=== PATIENT | female | born 1945 | race Caucasian/White ===

== ENCOUNTER → 2017-03-22 | Outpatient (CLI) | payer MEDICARE, BC | LOC: M RAD 08:54 | DX: R16.1 Splenomegaly, not elsewhere classified (principal); D69.6 Thrombocytopenia, unspecified | CPT/HCPCS: 76700 ==

== ENCOUNTER → 2017-03-23 | Outpatient (REF) | payer MEDICARE, BC | LOC: M LAB REF 13:14 | DX: Z00.00 Encounter for general adult medical examination without abnormal findings (principal); E11.8 Type 2 diabetes mellitus with unspecified complications; Z79.899 Other long term (current) drug therapy | CPT/HCPCS: 87086 ==

== ENCOUNTER → 2017-04-25 | Outpatient (CLI) | payer MEDICARE, BC ==
[2017-04-25 15:20] LABS: ALBUMIN 4.2 GM/DL (3.2-5.2); ALKALINE PHOSPHATASE 112 U/L (45-117); ALT/SGPT 81 U/L (12-78); ANION GAP 6 MEQ/L (8-16); AST/SGOT 42 U/L (7-37); BILIRUBIN,TOTAL 1.1 MG/DL (0.2-1.0); BLOOD UREA NITROGEN 7 MG/DL (7-18); CALCIUM LEVEL 8.6 MG/DL (8.8-10.2); CARBON DIOXIDE LEVEL 30 MEQ/L (21-32); CHLORIDE LEVEL 106 MEQ/L (98-107); CHOLESTEROL LEVEL 134 MG/DL (<200); CHOLESTEROL RISK RATIO 3.045 (<5); CREATININE FOR GFR 0.61 MG/DL (0.55-1.30); GLOMERULAR FILTRATION RATE > 60.0 (>39); GLUCOSE, FASTING 186 MG/DL (70-100); HDL CHOLESTEROL 44 MG/DL (>40); NON-HDL-C 90 MG/DL; POTASSIUM SERUM 4.3 MEQ/L (3.5-5.1); SODIUM LEVEL 142 MEQ/L (136-145); TOTAL PROTEIN 7.2 GM/DL (6.4-8.2); TRIGLYCERIDES LEVEL 160 MG/DL (<150)
[2017-04-25 15:32] LABS: MALB URINE SIEMENS 27.7 MG/L; MAU/CREAT RATIO 20.3 MCG/MG (0.0-30.0)
== END ==
LOC: M SFHCSACK 08:18
DX: E78.5 Hyperlipidemia, unspecified (principal); E11.8 Type 2 diabetes mellitus with unspecified complications
CPT/HCPCS: 80053

== ENCOUNTER → 2017-06-08 | Outpatient (REF) | payer MEDICARE, BC ==
[2017-06-08 20:00] LABS: ALBUMIN 4.1 GM/DL (3.2-5.2); ALBUMIN/GLOBULIN RATIO 1.37 (1.00-1.93); ALKALINE PHOSPHATASE 246 U/L (45-117); ALT/SGPT 57 U/L (12-78); ANION GAP 6 MEQ/L (8-16); AST/SGOT 28 U/L (7-37); BILIRUBIN,TOTAL 0.7 MG/DL (0.2-1.0); BLOOD UREA NITROGEN 11 MG/DL (7-18); CALCIUM LEVEL 8.5 MG/DL (8.8-10.2); CARBON DIOXIDE LEVEL 29 MEQ/L (21-32); CHLORIDE LEVEL 101 MEQ/L (98-107); CREATININE FOR GFR 0.85 MG/DL (0.55-1.30); FERRITIN 411 NG/ML (8-252); GLOMERULAR FILTRATION RATE > 60.0 (>39); IRON (FE) 101 UG/DL (50-170); PERCENT SATURATION 39.9 % (13.2-45.0); POTASSIUM SERUM 4.3 MEQ/L (3.5-5.1); SODIUM LEVEL 136 MEQ/L (136-145); TOTAL IRON BINDING CAPACITY 253 UG/DL (250-450); TOTAL PROTEIN 7.1 GM/DL (6.4-8.2)
[2017-06-08 20:10] LABS: GLUCOSE, FASTING 521 MG/DL (70-100)
[2017-06-08 20:39] LABS: BASO % 0.6 % (0.0-1.0); EOS # 0.1 10^3/uL (0.0-0.50); EOS % 1.4 % (0.0-3.0); HEMATOCRIT 43.5 % (36.0-47.0); HEMOGLOBIN 14.6 g/dl (12.0-15.5); IMMATURE GRANULOCYTE % 0.3 % (0-3.0); LYMPH # 0.9 10^3/uL (1.5-4.5); LYMPH % 23.8 % (24.0-44.0); MEAN CORPUSCULAR HEMOGLOBIN 31.5 pg (27.0-33.0); MEAN CORPUSCULAR HGB CONC 33.6 g/dl (32.0-36.5); MONO # 0.3 10^3/uL (0.0-0.8); MONO % 7.6 % (0.0-5.0); NEUTROPHILS # 2.4 10^3/uL (1.8-7.7); NEUTROPHILS % 66.3 % (36.0-66.0); RED BLOOD COUNT 4.63 10^6/uL (4.00-5.40); RED CELL DISTRIBUTION WIDTH 13.9 % (11.5-14.5); WHITE BLOOD COUNT 3.6 10^3/uL (4.0-10.0)
[2017-06-08 21:33] LABS: IMMATURE PLATELET FRACTION % 9.6 % (0.0-9.6); PLATELET COUNT, AUTOMATED 87 10^3/uL (150-450)
== END ==
LOC: M LABNEURO 11:52
DX: D50.0 Iron deficiency anemia secondary to blood loss (chronic) (principal)
CPT/HCPCS: 83550

== ENCOUNTER → 2017-06-24 | Outpatient (REF) | payer MEDICARE, BC ==
[2017-06-24 13:37] LABS: BASO % 0.5 % (0.0-1.0); EOS # 0.1 10^3/uL (0.0-0.50); EOS % 2.3 % (0.0-3.0); HEMATOCRIT 42.5 % (36.0-47.0); HEMOGLOBIN 14.6 g/dl (12.0-15.5); IMMATURE GRANULOCYTE % 0.2 % (0-3.0); LYMPH # 1.1 10^3/uL (1.5-4.5); LYMPH % 24.5 % (24.0-44.0); MEAN CORPUSCULAR HEMOGLOBIN 32.2 pg (27.0-33.0); MEAN CORPUSCULAR HGB CONC 34.4 g/dl (32.0-36.5); MEAN CORPUSCULAR VOLUME 93.8 fl (80.0-96.0); MONO # 0.4 10^3/uL (0.0-0.8); MONO % 8.8 % (0.0-5.0); NEUTROPHILS # 2.8 10^3/uL (1.8-7.7); NEUTROPHILS % 63.7 % (36.0-66.0); PLATELET COUNT, AUTOMATED 100 10^3/uL (150-450); RED BLOOD COUNT 4.53 10^6/uL (4.00-5.40); RED CELL DISTRIBUTION WIDTH 12.9 % (11.5-14.5); WHITE BLOOD COUNT 4.3 10^3/uL (4.0-10.0)
[2017-06-24 14:10] LABS: ERYTHROCYTE SEDIMENTATION RATE 13 mm/hr (0-30)
[2017-06-24 14:14] LABS: VITAMIN B12 LEVEL 1439 PG/ML
[2017-06-24 14:15] LABS: FOLATE > 24.0 NG/ML
[2017-06-24 14:28] LABS: ALBUMIN 3.9 GM/DL (3.2-5.2); ALBUMIN/GLOBULIN RATIO 1.22 (1.00-1.93); ALKALINE PHOSPHATASE 223 U/L (45-117); ALT/SGPT 31 U/L (12-78); ANION GAP 4 MEQ/L (8-16); AST/SGOT 23 U/L (7-37); BLOOD UREA NITROGEN 13 MG/DL (7-18); CALCIUM LEVEL 8.5 MG/DL (8.8-10.2); CARBON DIOXIDE LEVEL 29 MEQ/L (21-32); CHLORIDE LEVEL 99 MEQ/L (98-107); CREATININE FOR GFR 0.73 MG/DL (0.55-1.30); GLOMERULAR FILTRATION RATE > 60.0 (>39); GLUCOSE, FASTING 376 MG/DL (70-100); POTASSIUM SERUM 4.1 MEQ/L (3.5-5.1); RHEUMATOID FACTOR QUANT < 10.0 IU/ML (<15.0); SODIUM LEVEL 132 MEQ/L (136-145); TOTAL PROTEIN 7.1 GM/DL (6.4-8.2)
[2017-06-24 15:28] LABS: ESTIMATED AVERAGE GLUCOSE 252 MG/DL (60-110); HEMOGLOBIN A1c 10.4 %
[2017-06-27 11:31] LABS: ALBUMIN 4.26 GM/DL (3.29-5.55); ALPHA-1-GLOBULIN % 3.5 % (2.9-4.9); ALPHA-1-GLOBULINS 0.25 GM/DL (0.17-0.41); ALPHA-2-GLOBULINS 0.85 GM/DL (0.42-0.99); BETA-1-GLOBULINS 0.38 GM/DL (0.28-0.60); BETA-1-GLOBULINS % 5.3 % (4.7-7.2); BETA-2-GLOBULINS 0.38 GM/DL (0.19-0.55); BETA-2-GLOBULINS % 5.4 % (3.2-6.5); GAMMA GLOBULIN % 13.8 % (11.1-18.8); GAMMA GLOBULINS 0.98 GM/DL (0.65-1.58)
[2017-06-28 08:58] LABS: DRVV SCREEN 43.1 SEC
== END ==
LOC: M LABNEURO 11:05
DX: G62.9 Polyneuropathy, unspecified (principal); Z79.899 Other long term (current) drug therapy
CPT/HCPCS: 82525

== ENCOUNTER 2017-07-14 18:04 | Emergency (ER) | payer MEDICARE, BC ==
[2017-07-14 20:13] LABS: BASO % 0.5 % (0.0-1.0); EOS # 0.2 10^3/uL (0.0-0.50); HEMOGLOBIN 13.3 g/dl (12.0-15.5); IMMATURE GRANULOCYTE % 0.2 % (0-3.0); LYMPH # 1.2 10^3/uL (1.5-4.5); LYMPH % 30.1 % (24.0-44.0); MEAN CORPUSCULAR HGB CONC 33.3 g/dl (32.0-36.5); MEAN CORPUSCULAR VOLUME 96.2 fl (80.0-96.0); MONO # 0.4 10^3/uL (0.0-0.8); MONO % 10.1 % (0.0-5.0); NEUTROPHILS # 2.2 10^3/uL (1.8-7.7); NEUTROPHILS % 55.1 % (36.0-66.0); PLATELET COUNT, AUTOMATED 109 10^3/uL (150-450); RED BLOOD COUNT 4.16 10^6/uL (4.00-5.40); RED CELL DISTRIBUTION WIDTH 12.6 % (11.5-14.5); WHITE BLOOD COUNT 4.1 10^3/uL (4.0-10.0)
[2017-07-14 20:26] LABS: INR 1.13; PROTHROMBIN TIME 14.7 SECONDS (12.4-14.5)
[2017-07-14 20:27] LABS: PARTIAL THROMBOPLASTIN TIME 31.8 SECONDS (26.8-37.9)
[2017-07-14 20:32] LABS: ALBUMIN 3.5 GM/DL (3.2-5.2); ALBUMIN/GLOBULIN RATIO 0.97 (1.00-1.93); ALKALINE PHOSPHATASE 190 U/L (45-117); ALT/SGPT 72 U/L (12-78); ANION GAP 5 MEQ/L (8-16); AST/SGOT 78 U/L (7-37); BILIRUBIN,DIRECT 0.2 MG/DL (0.0-0.2); BILIRUBIN,TOTAL 0.5 MG/DL (0.2-1.0); BLOOD UREA NITROGEN 8 MG/DL (7-18); CALCIUM LEVEL 8.6 MG/DL (8.8-10.2); CARBON DIOXIDE LEVEL 31 MEQ/L (21-32); CHLORIDE LEVEL 106 MEQ/L (98-107); CPK CREATINE PHOSPHOKINASE 779 U/L (26-192); FREE T4 0.76 NG/DL (0.76-1.46); GLOMERULAR FILTRATION RATE > 60.0 (>39); GLUCOSE, FASTING 85 MG/DL (70-100); LIPASE 42 U/L (73-393); SODIUM LEVEL 142 MEQ/L (136-145); TOTAL PROTEIN 7.1 GM/DL (6.4-8.2); TROPONIN I < 0.02 NG/ML (< 0.10)
[2017-07-14 20:38] LABS: CK-MB VALUE MASS 5.6 NG/ML (<3.6); MB/CK RELATIVE INDEX 0.71 (< OR =4); NT-PRO BNP 202 PG/ML (<125)
[2017-07-14 21:22] LABS: KETONE, URINE AUTO RFX NEGATIVE (NEGATIVE); NITRITE, URINE AUTO RFX NEGATIVE (NEGATIVE); RBC, URINE AUTO RFX 4 /HPF (0-3); SPECIFIC GRAVITY UR AUTO RFX 1.008 (1.002-1.035); SQUAM EPITHELIAL CELL UR AURFX 0 /HPF (0-6)
[2017-07-14 21:23] LABS: LEUKOCYTE ESTERASE UR AUTO RFX 3+ (NEGATIVE); WBC, URINE AUTO RFX 20 /HPF (0-3)
[2017-07-14] MEDS: CIPROFLOXACIN 500 MG TAB PO (21:54)
== END 2017-07-14 22:06 | disposition home or self-care (01) ==
LOC: M ED 18:04
DX: N30.90 Cystitis, unspecified without hematuria (principal); R60.0 Localized edema; R53.1 Weakness; I87.2 Venous insufficiency (chronic) (peripheral); M16.0 Bilateral primary osteoarthritis of hip; M51.37 Other intervertebral disc degeneration, lumbosacral region; R06.02 Shortness of breath; K57.30 Diverticulosis of large intestine without perforation or abscess without bleeding; R00.1 Bradycardia, unspecified; Z91.81 History of falling; I10 Essential (primary) hypertension; E78.9 Disorder of lipoprotein metabolism, unspecified; D50.9 Iron deficiency anemia, unspecified; K74.60 Unspecified cirrhosis of liver; Z87.891 Personal history of nicotine dependence; Z88.2 Allergy status to sulfonamides
CPT/HCPCS: 72192

== ENCOUNTER 2017-07-24 16:36 | Emergency (ER) | payer MEDICARE, BC ==
[2017-07-24 17:14] LABS: BASO % 0.5 % (0.0-1.0); EOS # 0.2 10^3/uL (0.0-0.50); EOS % 3.9 % (0.0-3.0); HEMATOCRIT 39.3 % (36.0-47.0); HEMOGLOBIN 13.1 g/dl (12.0-15.5); IMMATURE GRANULOCYTE % 0.3 % (0-3.0); LYMPH # 0.9 10^3/uL (1.5-4.5); LYMPH % 23.2 % (24.0-44.0); MEAN CORPUSCULAR HGB CONC 33.3 g/dl (32.0-36.5); MEAN CORPUSCULAR VOLUME 95.9 fl (80.0-96.0); MONO # 0.3 10^3/uL (0.0-0.8); MONO % 8.1 % (0.0-5.0); NEUTROPHILS # 2.5 10^3/uL (1.8-7.7); RED CELL DISTRIBUTION WIDTH 12.6 % (11.5-14.5); WHITE BLOOD COUNT 3.8 10^3/uL (4.0-10.0)
[2017-07-24 17:17] LABS: PLATELET COUNT, AUTOMATED 88 10^3/uL (150-450)
[2017-07-24 17:18] LABS: PLATELET F 86
[2017-07-24] MEDS: MORPHINE 4 MG/ML 1ML VIAL/SYRINGE (J2270) IV (17:26)
[2017-07-24 17:37] LABS: ANION GAP 5 MEQ/L (8-16); BLOOD UREA NITROGEN 11 MG/DL (7-18); CALCIUM LEVEL 8.5 MG/DL (8.8-10.2); CARBON DIOXIDE LEVEL 30 MEQ/L (21-32); CHLORIDE LEVEL 105 MEQ/L (98-107); GLOMERULAR FILTRATION RATE > 60.0 (>39); GLUCOSE, FASTING 140 MG/DL (70-100); POTASSIUM SERUM 3.9 MEQ/L (3.5-5.1); SODIUM LEVEL 140 MEQ/L (136-145)
[2017-07-24 18:20] LABS: BEDSIDE GLUCOSE 121 MG/DL (83-110)
[2017-07-24 19:05] LABS: KETONE, URINE AUTO RFX NEGATIVE (NEGATIVE); NITRITE, URINE AUTO RFX NEGATIVE (NEGATIVE); RBC, URINE AUTO RFX 2 /HPF (0-3); SPECIFIC GRAVITY UR AUTO RFX 1.006 (1.002-1.035); SQUAM EPITHELIAL CELL UR AURFX 0 /HPF (0-6); WBC, URINE AUTO RFX 6 /HPF (0-3)
[2017-07-24 19:06] LABS: LEUKOCYTE ESTERASE UR AUTO RFX TRACE (NEGATIVE)
== END 2017-07-24 19:58 | disposition home or self-care (01) ==
LOC: M ED 16:36
DX: S32.030A Wedge compression fracture of third lumbar vertebra, initial encounter for closed fracture (principal); S32.040A Wedge compression fracture of fourth lumbar vertebra, initial encounter for closed fracture; X58.XXXA Exposure to other specified factors, initial encounter; Y92.89 Other specified places as the place of occurrence of the external cause; M51.9 Unspecified thoracic, thoracolumbar and lumbosacral intervertebral disc disorder; M47.819 Spondylosis without myelopathy or radiculopathy, site unspecified; E11.9 Type 2 diabetes mellitus without complications; F41.9 Anxiety disorder, unspecified; F32.9 Major depressive disorder, single episode, unspecified; M19.90 Unspecified osteoarthritis, unspecified site; E78.9 Disorder of lipoprotein metabolism, unspecified; Z88.2 Allergy status to sulfonamides; Z88.8 Allergy status to other drugs, medicaments and biological substances; Z79.899 Other long term (current) drug therapy; Z79.2 Long term (current) use of antibiotics; Z79.4 Long term (current) use of insulin
CPT/HCPCS: J2270

== ENCOUNTER → 2017-07-27 | Outpatient (CLI) | payer MEDICARE, BC | LOC: M PAIN 11:15 | DX: M54.16 Radiculopathy, lumbar region (principal); S32.040S Wedge compression fracture of fourth lumbar vertebra, sequela; I10 Essential (primary) hypertension; E11.9 Type 2 diabetes mellitus without complications; G47.30 Sleep apnea, unspecified; K74.60 Unspecified cirrhosis of liver; K21.9 Gastro-esophageal reflux disease without esophagitis; D51.9 Vitamin B12 deficiency anemia, unspecified; Z79.891 Long term (current) use of opiate analgesic; Z79.4 Long term (current) use of insulin; Z79.899 Other long term (current) drug therapy; Z88.2 Allergy status to sulfonamides; Z88.6 Allergy status to analgesic agent; Z87.891 Personal history of nicotine dependence | CPT/HCPCS: G0463 ==

== ENCOUNTER → 2017-08-02 | Outpatient (CLI) | payer MEDICARE, BC | LOC: M RAD 09:31 | DX: S32.040A Wedge compression fracture of fourth lumbar vertebra, initial encounter for closed fracture (principal); M15.9 Polyosteoarthritis, unspecified; X58.XXXA Exposure to other specified factors, initial encounter; Y92.9 Unspecified place or not applicable | CPT/HCPCS: 78306 ==

== ENCOUNTER → 2017-08-09 | Outpatient (CLI) | payer MEDICARE, BC ==
[~2017-08-09] MED LIST: BUPIVACAINE HCL 0.25% 10 ML VIAL As Ordered; ISOVUE-M 300 61% 15ML VIAL (Q9967) As Ordered; LIDOCAINE 1% SDV INJ 30 ML VIAL As Ordered; TRIAMCINOLONE ACETONIDE SUSP 40 MG/ML VIAL (J3301) As Ordered; diazePAM 5 MG TAB As Ordered; oxyCODONE 5MG TAB As Ordered
== END ==
LOC: M PAIN 08:45
DX: G89.29 Other chronic pain (principal); M47.816 Spondylosis without myelopathy or radiculopathy, lumbar region; M47.817 Spondylosis without myelopathy or radiculopathy, lumbosacral region; I10 Essential (primary) hypertension; K21.9 Gastro-esophageal reflux disease without esophagitis; E11.9 Type 2 diabetes mellitus without complications; G47.30 Sleep apnea, unspecified; K74.60 Unspecified cirrhosis of liver; Z79.4 Long term (current) use of insulin; Z79.899 Other long term (current) drug therapy; Z88.2 Allergy status to sulfonamides; Z88.6 Allergy status to analgesic agent; Z87.891 Personal history of nicotine dependence
CPT/HCPCS: J3301

== ENCOUNTER → 2017-08-25 | Outpatient (CLI) | payer MEDICARE, BC ==
[2017-08-25 13:32] LABS: BASO % 0.4 % (0.0-1.0); EOS # 0.2 10^3/uL (0.0-0.50); EOS % 2.2 % (0.0-3.0); HEMATOCRIT 45.6 % (36.0-47.0); HEMOGLOBIN 15.6 g/dl (12.0-15.5); IMMATURE GRANULOCYTE % 0.3 % (0-3.0); LYMPH # 1.8 10^3/uL (1.5-4.5); LYMPH % 25.8 % (24.0-44.0); MEAN CORPUSCULAR HEMOGLOBIN 31.6 pg (27.0-33.0); MEAN CORPUSCULAR HGB CONC 34.2 g/dl (32.0-36.5); MEAN CORPUSCULAR VOLUME 92.5 fl (80.0-96.0); MONO # 0.5 10^3/uL (0.0-0.8); MONO % 6.8 % (0.0-5.0); NEUTROPHILS # 4.4 10^3/uL (1.8-7.7); NEUTROPHILS % 64.5 % (36.0-66.0); PLATELET COUNT, AUTOMATED 103 10^3/uL (150-450); RED BLOOD COUNT 4.93 10^6/uL (4.00-5.40); RED CELL DISTRIBUTION WIDTH 12.6 % (11.5-14.5); WHITE BLOOD COUNT 6.9 10^3/uL (4.0-10.0)
[2017-08-25 13:57] LABS: ALBUMIN/GLOBULIN RATIO 1.21 (1.00-1.93); ALKALINE PHOSPHATASE 135 U/L (45-117); ALT/SGPT 65 U/L (12-78); ANION GAP 5 MEQ/L (8-16); AST/SGOT 26 U/L (7-37); BILIRUBIN,TOTAL 0.6 MG/DL (0.2-1.0); BLOOD UREA NITROGEN 17 MG/DL (7-18); CALCIUM LEVEL 8.9 MG/DL (8.8-10.2); CARBON DIOXIDE LEVEL 31 MEQ/L (21-32); CHLORIDE LEVEL 101 MEQ/L (98-107); CREATININE FOR GFR 0.67 MG/DL (0.55-1.30); GLOMERULAR FILTRATION RATE > 60.0 (>39); GLUCOSE, FASTING 153 MG/DL (70-100); POTASSIUM SERUM 4.5 MEQ/L (3.5-5.1); SODIUM LEVEL 137 MEQ/L (136-145); TOTAL PROTEIN 7.3 GM/DL (6.4-8.2)
[2017-08-25 14:09] LABS: APPEARANCE, URINE CLEAR (CLEAR); BACTERIA, URINE AUTO NEGATIVE (NEGATIVE); BILIRUBIN, URINE AUTO NEGATIVE (NEGATIVE); BLOOD, URINE BLOOD 1+ (NEGATIVE); COLOR, URINE YELLOW (YELLOW); GLUCOSE, URINE (UA) AUTO 3+ mg/dL (NEGATIVE); KETONE, URINE AUTO NEGATIVE (NEGATIVE); LEUKOCYTE ESTERASE, URINE AUTO 3+ (NEGATIVE); NITRITE, URINE AUTO NEGATIVE (NEGATIVE); PROTEIN, URINE AUTO NEGATIVE (NEGATIVE); RBC, URINE AUTO 15 /HPF (0-3); SQUAMOUS EPITHELIAL CELL UR AU 1 /HPF (0-6); UROBILINOGEN, URINE AUTO 0.2 mg/dL (0.0-2.0); WBC, URINE AUTO 27 /HPF (0-3)
== END ==
LOC: M LAB 12:28
DX: I10 Essential (primary) hypertension (principal)
CPT/HCPCS: 80053

== ENCOUNTER → 2017-10-04 | Outpatient (CLI) | payer MEDICARE, BC ==
[2017-10-04 12:27] LABS: BASO % 0.6 % (0.0-1.0); EOS # 0.1 10^3/uL (0.0-0.50); EOS % 2.5 % (0.0-3.0); HEMOGLOBIN 14.5 g/dl (12.0-15.5); IMMATURE GRANULOCYTE % 0.6 % (0-3.0); LYMPH # 1.5 10^3/uL (1.5-4.5); LYMPH % 30.9 % (24.0-44.0); MEAN CORPUSCULAR HEMOGLOBIN 31.5 pg (27.0-33.0); MEAN CORPUSCULAR VOLUME 95.4 fl (80.0-96.0); MONO # 0.4 10^3/uL (0.0-0.8); MONO % 7.6 % (0.0-5.0); NEUTROPHILS # 2.8 10^3/uL (1.8-7.7); NEUTROPHILS % 57.8 % (36.0-66.0); RED BLOOD COUNT 4.61 10^6/uL (4.00-5.40); RED CELL DISTRIBUTION WIDTH 13.5 % (11.5-14.5); WHITE BLOOD COUNT 4.9 10^3/uL (4.0-10.0)
[2017-10-04 12:42] LABS: PLATELET COUNT, AUTOMATED 93 10^3/uL (150-450)
[2017-10-04 12:43] LABS: IMMATURE PLATELET FRACTION % 6.5 % (0.0-9.6)
[2017-10-04 13:15] LABS: ALBUMIN 3.5 GM/DL (3.2-5.2); ALBUMIN/GLOBULIN RATIO 1.03 (1.00-1.93); ALKALINE PHOSPHATASE 104 U/L (45-117); ALT/SGPT 81 U/L (12-78); ANION GAP 5 MEQ/L (8-16); AST/SGOT 39 U/L (7-37); BILIRUBIN,TOTAL 0.5 MG/DL (0.2-1.0); BLOOD UREA NITROGEN 9 MG/DL (7-18); CALCIUM LEVEL 8.9 MG/DL (8.8-10.2); CARBON DIOXIDE LEVEL 32 MEQ/L (21-32); CHLORIDE LEVEL 101 MEQ/L (98-107); CREATININE FOR GFR 0.74 MG/DL (0.55-1.30); FERRITIN 336 NG/ML (8-252); GLOMERULAR FILTRATION RATE > 60.0 (>39); GLUCOSE, FASTING 274 MG/DL (70-100); IRON (FE) 117 UG/DL (50-170); PERCENT SATURATION 43.8 % (13.2-45.0); POTASSIUM SERUM 4.2 MEQ/L (3.5-5.1); SODIUM LEVEL 138 MEQ/L (136-145); TOTAL IRON BINDING CAPACITY 267 UG/DL (250-450); TOTAL PROTEIN 6.9 GM/DL (6.4-8.2)
== END ==
LOC: M LAB 11:55
DX: D50.8 Other iron deficiency anemias (principal)
CPT/HCPCS: 83550

== ENCOUNTER → 2017-10-06 | Outpatient (CLI) | payer MEDICARE, BC ==
[2017-10-06 12:21] LABS: BASO % 0.5 % (0.0-1.0); EOS # 0.2 10^3/uL (0.0-0.50); EOS % 2.5 % (0.0-3.0); HEMATOCRIT 47.5 % (36.0-47.0); HEMOGLOBIN 15.9 g/dl (12.0-15.5); IMMATURE GRANULOCYTE % 0.3 % (0-3.0); LYMPH # 1.5 10^3/uL (1.5-4.5); LYMPH % 25.4 % (24.0-44.0); MEAN CORPUSCULAR HEMOGLOBIN 31.5 pg (27.0-33.0); MEAN CORPUSCULAR HGB CONC 33.5 g/dl (32.0-36.5); MEAN CORPUSCULAR VOLUME 94.1 fl (80.0-96.0); MONO # 0.4 10^3/uL (0.0-0.8); NEUTROPHILS # 3.8 10^3/uL (1.8-7.7); NEUTROPHILS % 64.3 % (36.0-66.0); PLATELET COUNT, AUTOMATED 106 10^3/uL (150-450); RED BLOOD COUNT 5.05 10^6/uL (4.00-5.40); RED CELL DISTRIBUTION WIDTH 13.6 % (11.5-14.5)
[2017-10-06 12:47] LABS: ALBUMIN 3.9 GM/DL (3.2-5.2); ALBUMIN/GLOBULIN RATIO 1.11 (1.00-1.93); ALKALINE PHOSPHATASE 96 U/L (45-117); ALT/SGPT 80 U/L (12-78); ANION GAP 6 MEQ/L (8-16); AST/SGOT 36 U/L (7-37); BILIRUBIN,TOTAL 0.8 MG/DL (0.2-1.0); BLOOD UREA NITROGEN 9 MG/DL (7-18); CALCIUM LEVEL 9.2 MG/DL (8.8-10.2); CARBON DIOXIDE LEVEL 32 MEQ/L (21-32); CHLORIDE LEVEL 104 MEQ/L (98-107); CREATININE FOR GFR 0.69 MG/DL (0.55-1.30); ESTIMATED AVERAGE GLUCOSE 206 MG/DL (60-110); GLOMERULAR FILTRATION RATE > 60.0 (>39); GLUCOSE, FASTING 88 MG/DL (70-100); HEMOGLOBIN A1c 8.8 %; SODIUM LEVEL 142 MEQ/L (136-145); TOTAL PROTEIN 7.4 GM/DL (6.4-8.2)
== END ==
LOC: M LAB 11:30
DX: Z01.812 Encounter for preprocedural laboratory examination (principal)
CPT/HCPCS: 80053

== ENCOUNTER → 2017-10-06 | Outpatient (CLI) | payer MEDICARE, BC ==
[2017-10-06 12:45] LABS: ANION GAP 10 MEQ/L (8-16); BLOOD UREA NITROGEN 9 MG/DL (7-18); CALCIUM LEVEL 9.3 MG/DL (8.8-10.2); CARBON DIOXIDE LEVEL 29 MEQ/L (21-32); CHLORIDE LEVEL 104 MEQ/L (98-107); CREATININE FOR GFR 0.68 MG/DL (0.55-1.30); GLOMERULAR FILTRATION RATE > 60.0 (>39); GLUCOSE, FASTING 95 MG/DL (70-100); POTASSIUM SERUM 4.1 MEQ/L (3.5-5.1); SODIUM LEVEL 143 MEQ/L (136-145)
== END ==
LOC: M LAB 11:32
DX: R60.0 Localized edema (principal)

== ENCOUNTER → 2017-10-19 | Outpatient (CLI) | payer MEDICARE, BC | LOC: M PAIN 13:45 | DX: M47.816 Spondylosis without myelopathy or radiculopathy, lumbar region (principal); M47.817 Spondylosis without myelopathy or radiculopathy, lumbosacral region; E11.9 Type 2 diabetes mellitus without complications; I10 Essential (primary) hypertension; K21.9 Gastro-esophageal reflux disease without esophagitis; D51.9 Vitamin B12 deficiency anemia, unspecified; K74.60 Unspecified cirrhosis of liver; Z79.4 Long term (current) use of insulin; Z79.899 Other long term (current) drug therapy; Z88.2 Allergy status to sulfonamides; Z88.6 Allergy status to analgesic agent; Z87.891 Personal history of nicotine dependence | CPT/HCPCS: G0463 ==

== ENCOUNTER → 2017-12-02 | Outpatient (CLI) | payer MEDICARE, BC | LOC: M PAIN 11:30 | DX: M47.816 Spondylosis without myelopathy or radiculopathy, lumbar region (principal); M47.817 Spondylosis without myelopathy or radiculopathy, lumbosacral region; I10 Essential (primary) hypertension; K21.9 Gastro-esophageal reflux disease without esophagitis; E11.9 Type 2 diabetes mellitus without complications; G47.30 Sleep apnea, unspecified; K74.60 Unspecified cirrhosis of liver; Z79.4 Long term (current) use of insulin; Z79.891 Long term (current) use of opiate analgesic; Z79.899 Other long term (current) drug therapy; Z88.2 Allergy status to sulfonamides; Z88.6 Allergy status to analgesic agent; Z87.891 Personal history of nicotine dependence | CPT/HCPCS: G0463 ==

== ENCOUNTER → 2018-01-17 | Outpatient (CLI) | payer MEDICARE, BC ==
[2018-01-17 16:00] LABS: BASO % 0.5 % (0.0-1.0); EOS # 0.1 10^3/uL (0.0-0.50); EOS % 3.3 % (0.0-3.0); HEMATOCRIT 40.8 % (36.0-47.0); HEMOGLOBIN 13.5 g/dl (12.0-15.5); IMMATURE GRANULOCYTE % 0.5 % (0-3.0); LYMPH # 1.2 10^3/uL (1.5-4.5); LYMPH % 29.5 % (24.0-44.0); MEAN CORPUSCULAR HEMOGLOBIN 30.8 pg (27.0-33.0); MEAN CORPUSCULAR HGB CONC 33.1 g/dl (32.0-36.5); MEAN CORPUSCULAR VOLUME 92.9 fl (80.0-96.0); MONO # 0.3 10^3/uL (0.0-0.8); MONO % 8.3 % (0.0-5.0); NEUTROPHILS # 2.3 10^3/uL (1.8-7.7); NEUTROPHILS % 57.9 % (36.0-66.0); PLATELET COUNT, AUTOMATED 100 10^3/uL (150-450); RED BLOOD COUNT 4.39 10^6/uL (4.00-5.40); RED CELL DISTRIBUTION WIDTH 13.2 % (11.5-14.5)
[2018-01-17 16:24] LABS: ALBUMIN 3.5 GM/DL (3.2-5.2); ALBUMIN/GLOBULIN RATIO 0.95 (1.00-1.93); ALKALINE PHOSPHATASE 150 U/L (45-117); ALT/SGPT 30 U/L (12-78); ANION GAP 6 MEQ/L (8-16); AST/SGOT 27 U/L (7-37); BILIRUBIN,TOTAL 0.3 MG/DL (0.2-1.0); BLOOD UREA NITROGEN 7 MG/DL (7-18); CALCIUM LEVEL 8.2 MG/DL (8.8-10.2); CARBON DIOXIDE LEVEL 31 MEQ/L (21-32); CHLORIDE LEVEL 103 MEQ/L (98-107); CREATININE FOR GFR 0.79 MG/DL (0.55-1.30); FERRITIN 161 NG/ML (8-252); GLOMERULAR FILTRATION RATE > 60.0 (>39); GLUCOSE, FASTING 266 MG/DL (70-100); IRON (FE) 53 UG/DL (50-170); PERCENT SATURATION 21.5 % (13.2-45.0); POTASSIUM SERUM 3.9 MEQ/L (3.5-5.1); SODIUM LEVEL 140 MEQ/L (136-145); TOTAL IRON BINDING CAPACITY 246 UG/DL (250-450); TOTAL PROTEIN 7.2 GM/DL (6.4-8.2)
== END ==
LOC: M LAB 15:39
DX: E61.1 Iron deficiency (principal)
CPT/HCPCS: 83550

== ENCOUNTER → 2018-01-18 | Outpatient (CLI) | payer MEDICARE, BC ==
[2018-01-18 11:24] LABS: ALBUMIN 3.9 GM/DL (3.2-5.2); ALBUMIN/GLOBULIN RATIO 1.15 (1.00-1.93); ALKALINE PHOSPHATASE 132 U/L (45-117); ALT/SGPT 30 U/L (12-78); ANION GAP 4 MEQ/L (8-16); AST/SGOT 30 U/L (7-37); BILIRUBIN,TOTAL 0.4 MG/DL (0.2-1.0); BLOOD UREA NITROGEN 7 MG/DL (7-18); CARBON DIOXIDE LEVEL 33 MEQ/L (21-32); CHLORIDE LEVEL 102 MEQ/L (98-107); CHOLESTEROL LEVEL 189 MG/DL (<200); CHOLESTEROL RISK RATIO 4.725 (<5); CREATININE FOR GFR 0.74 MG/DL (0.55-1.30); GLOMERULAR FILTRATION RATE > 60.0 (>39); GLUCOSE, FASTING 133 MG/DL (70-100); HDL CHOLESTEROL 40 MG/DL (>40); LDL CHOLESTEROL 114 MG/DL (<100); NON-HDL-C 149 MG/DL; POTASSIUM SERUM 3.7 MEQ/L (3.5-5.1); SODIUM LEVEL 139 MEQ/L (136-145); TOTAL PROTEIN 7.3 GM/DL (6.4-8.2); TRIGLYCERIDES LEVEL 175 MG/DL (<150)
[2018-01-18 11:33] LABS: CREATININE, URINE 30.6 MG/DL; MALB URINE SIEMENS 5.3 MG/L; MAU/CREAT RATIO 17.3 MCG/MG (0.0-30.0)
== END ==
LOC: M LAB 10:16
DX: E11.8 Type 2 diabetes mellitus with unspecified complications (principal)
CPT/HCPCS: 80053

== ENCOUNTER → 2018-05-10 | Outpatient (CLI) | payer MEDICARE, BC ==
[~2018-05-10] MED LIST changes: -BUPIVACAINE HCL 0.25% 10 ML VIAL As Ordered; +CIPR-249 PO; +CYCL10TA; +ESCI20TA; +FURO20TA2; +GABA-1171; +GLIM2TAB; -ISOVUE-M 300 61% 15ML VIAL (Q9967) As Ordered; -LIDOCAINE 1% SDV INJ 30 ML VIAL As Ordered; +MELA3CAP2 PO; +METO50TA7; +NOVO1INJ4; +OXYC-517; +PANT40TA3; +ROLLMIS2 XX; +SPIR-10; +TOUJ1.2I; -TRIAMCINOLONE ACETONIDE SUSP 40 MG/ML VIAL (J3301) As Ordered; +[UNRECOGNIZED DRUG - CODE] XX; -diazePAM 5 MG TAB As Ordered; -oxyCODONE 5MG TAB As Ordered
[2018-05-10 15:27] LABS: BASO % 0.7 % (0.0-1.0); EOS # 0.1 10^3/uL (0.0-0.50); EOS % 1.9 % (0.0-3.0); HEMATOCRIT 46.1 % (36.0-47.0); HEMOGLOBIN 15.5 g/dl (12.0-15.5); LYMPH # 1.1 10^3/uL (1.5-4.5); LYMPH % 27.5 % (24.0-44.0); MEAN CORPUSCULAR HEMOGLOBIN 30.3 pg (27.0-33.0); MEAN CORPUSCULAR HGB CONC 33.6 g/dl (32.0-36.5); MEAN CORPUSCULAR VOLUME 90.2 fl (80.0-96.0); MONO # 0.3 10^3/uL (0.0-0.8); MONO % 7.5 % (0.0-5.0); NEUTROPHILS # 2.6 10^3/uL (1.8-7.7); NEUTROPHILS % 62.4 % (36.0-66.0); RED BLOOD COUNT 5.11 10^6/uL (4.00-5.40); WHITE BLOOD COUNT 4.1 10^3/uL (4.0-10.0)
[2018-05-10 15:29] LABS: PLATELET COUNT, AUTOMATED 82 10^3/uL (150-450)
[2018-05-10 15:35] LABS: INR 1.2; PROTHROMBIN TIME 15.4 SECONDS (12.1-14.4)
[2018-05-10 16:44] LABS: ALT/SGPT 34 U/L (12-78); BILIRUBIN,TOTAL 0.8 MG/DL (0.2-1.0); BLOOD UREA NITROGEN 11 MG/DL (7-18); CALCIUM LEVEL 9.1 MG/DL (8.8-10.2); CARBON DIOXIDE LEVEL 26 MEQ/L (21-32); CHLORIDE LEVEL 101 MEQ/L (98-107); CREATININE FOR GFR 0.78 MG/DL (0.55-1.30); GLOMERULAR FILTRATION RATE > 60.0 (>39); GLUCOSE, FASTING 397 MG/DL (70-100); POTASSIUM SERUM 4.2 MEQ/L (3.5-5.1); SODIUM LEVEL 136 MEQ/L (136-145); TOTAL PROTEIN 7.4 GM/DL (6.4-8.2)
== END ==
LOC: M LAB 14:35
PROVIDERS: ATTEND Internal Medicine Gastroenterology
DX: K74.60 Unspecified cirrhosis of liver (principal)

== ENCOUNTER → 2018-05-10 | Outpatient (CLI) | payer MEDICARE, BC ==
[2018-05-10 15:24] LABS: BASO % 0.5 % (0.0-1.0); EOS # 0.1 10^3/uL (0.0-0.50); EOS % 2.5 % (0.0-3.0); HEMATOCRIT 45.5 % (36.0-47.0); HEMOGLOBIN 15.3 g/dl (12.0-15.5); LYMPH # 1.1 10^3/uL (1.5-4.5); LYMPH % 27.8 % (24.0-44.0); MEAN CORPUSCULAR HEMOGLOBIN 30.2 pg (27.0-33.0); MEAN CORPUSCULAR HGB CONC 33.6 g/dl (32.0-36.5); MEAN CORPUSCULAR VOLUME 89.9 fl (80.0-96.0); MONO # 0.3 10^3/uL (0.0-0.8); MONO % 7.6 % (0.0-5.0); NEUTROPHILS # 2.5 10^3/uL (1.8-7.7); NEUTROPHILS % 61.4 % (36.0-66.0); RED BLOOD COUNT 5.06 10^6/uL (4.00-5.40); WHITE BLOOD COUNT 4.1 10^3/uL (4.0-10.0)
[2018-05-10 15:28] LABS: PLATELET COUNT, AUTOMATED 78 10^3/uL (150-450)
[2018-05-10 15:57] LABS: ALBUMIN 4.1 GM/DL (3.2-5.2); ALT/SGPT 35 U/L (12-78); BILIRUBIN,TOTAL 0.8 MG/DL (0.2-1.0); BLOOD UREA NITROGEN 11 MG/DL (7-18); CARBON DIOXIDE LEVEL 26 MEQ/L (21-32); CHLORIDE LEVEL 101 MEQ/L (98-107); FERRITIN 102 NG/ML (8-252); GLOMERULAR FILTRATION RATE > 60.0 (>39); GLUCOSE, FASTING 397 MG/DL (70-100); IRON (FE) 131 UG/DL (50-170); PERCENT SATURATION 37.9 % (13.2-45.0); POTASSIUM SERUM 4.1 MEQ/L (3.5-5.1); SODIUM LEVEL 136 MEQ/L (136-145); TOTAL IRON BINDING CAPACITY 346 UG/DL (250-450); TOTAL PROTEIN 7.5 GM/DL (6.4-8.2)
== END ==
LOC: M LAB 14:25
PROVIDERS: ATTEND Nurse Practitioner
DX: D69.6 Thrombocytopenia, unspecified (principal); E61.1 Iron deficiency; K74.60 Unspecified cirrhosis of liver

== ENCOUNTER → 2018-05-17 | Outpatient (CLI) | payer MEDICARE ==
--- NOTE | 2018-05-17 14:40 | REP ---
Clinical: Cirrhosis. Technique: Real time sharma scale ultrasound examination using curved array transducer. Findings: Liver is enlarged and demonstrates coarsened echotexture with subtle contour irregularity consistent with cirrhosis. No focal hepatic lesion identified. The pancreas is incompletely evaluated due to interposed bowel gas but visualized portions appear normal. The gallbladder demonstrates multiple folds without gallstones, wall thickening, or pericholecystic fluid. No biliary ductal dilatation is appreciated and the common bile duct measures 5.0 mm diameter. The right kidney demonstrates renovascular calcifications and measures 13.0 x 7.0 x 5.2 cm without hydronephrosis. No ascites. Impression: Findings consistent with cirrhosis. No focal hepatic lesion identified. Electronically Signed by Singh Chapman MD 05/17/2018 02:32 P
== END ==
LOC: M RAD 09:16
PROVIDERS: ATTEND Internal Medicine Gastroenterology
DX: K74.60 Unspecified cirrhosis of liver (principal)

== ENCOUNTER → 2018-06-23 | Outpatient (CLI) | payer MEDICARE ==
[2018-06-23 11:40] LABS: ALBUMIN 3.9 GM/DL (3.2-5.2); ALT/SGPT 35 U/L (12-78); BLOOD UREA NITROGEN 7 MG/DL (7-18); CALCIUM LEVEL 8.7 MG/DL (8.8-10.2); CARBON DIOXIDE LEVEL 30 MEQ/L (21-32); CHLORIDE LEVEL 108 MEQ/L (98-107); CHOLESTEROL LEVEL 146 MG/DL (<200); CHOLESTEROL RISK RATIO 3.106 (<5); CREATININE FOR GFR 0.68 MG/DL (0.55-1.30); GLOMERULAR FILTRATION RATE > 60.0 (>39); GLUCOSE, FASTING 161 MG/DL (70-100); HDL CHOLESTEROL 47 MG/DL (>40); LDL CHOLESTEROL 73 MG/DL (<100); NON-HDL-C 99 MG/DL; SODIUM LEVEL 142 MEQ/L (136-145); TRIGLYCERIDES LEVEL 129 MG/DL (<150)
== END ==
LOC: M LAB 10:40
PROVIDERS: ATTEND Physician Assistant Medical
DX: I10 Essential (primary) hypertension (principal); E78.5 Hyperlipidemia, unspecified

== ENCOUNTER → 2018-08-30 | Outpatient (REF) | payer MEDICARE ==
[2018-08-30 15:48] LABS: BLOOD UREA NITROGEN 8 MG/DL (7-18); CALCIUM LEVEL 9.4 MG/DL (8.8-10.2); CARBON DIOXIDE LEVEL 29 MEQ/L (21-32); CHLORIDE LEVEL 101 MEQ/L (98-107); CREATININE FOR GFR 0.78 MG/DL (0.55-1.30); GLOMERULAR FILTRATION RATE > 60.0 (>39); GLUCOSE, FASTING 249 MG/DL (70-100); SODIUM LEVEL 138 MEQ/L (136-145)
[2018-08-30 16:28] LABS: MALB URINE SIEMENS 8.8 MG/L; MAU/CREAT RATIO 8.7 MCG/MG (0.0-30.0)
== END ==
LOC: M LABDRAW1 12:11
PROVIDERS: ATTEND Nurse Practitioner Family
DX: E11.65 Type 2 diabetes mellitus with hyperglycemia (principal)

== ENCOUNTER → 2018-10-09 | Outpatient (CLI) | payer MEDICARE ==
[2018-10-09 17:47] LABS: BLOOD UREA NITROGEN 10 MG/DL (7-18); CALCIUM LEVEL 9.2 MG/DL (8.8-10.2); CARBON DIOXIDE LEVEL 28 MEQ/L (21-32); CHLORIDE LEVEL 109 MEQ/L (98-107); CREATININE FOR GFR 0.66 MG/DL (0.55-1.30); GLOMERULAR FILTRATION RATE > 60.0 (>39); GLUCOSE, FASTING 102 MG/DL (70-100); POTASSIUM SERUM 3.9 MEQ/L (3.5-5.1); SODIUM LEVEL 141 MEQ/L (136-145)
== END ==
LOC: M LAB 16:21
PROVIDERS: ATTEND Internal Medicine Endocrinology, Diabetes & Metabolism
DX: E11.65 Type 2 diabetes mellitus with hyperglycemia (principal)

== ENCOUNTER → 2018-10-13 | Outpatient (CLI) | payer MEDICARE ==
[~2018-10-13] MED LIST changes: -GLIM2TAB; +GLIM2TAB4
--- NOTE | 2018-10-13 10:39 | REP ---
RIGHT UPPER QUADRANT ULTRASOUND: Real-time sonographic evaluation of the right upper quadrant performed. Gallbladder demonstrates no evidence of intraluminal sludge or calculi, wall thickening, or pericholecystic fluid. There is no intrahepatic or extrahepatic biliary dilatation, common bile duct measuring 5 mm. Liver demonstrates heterogeneous echotexture with no gross mass. Pancreas demonstrates no gross mass, not optimally seen due to overlying bowel gas. Right kidney demonstrates no hydronephrosis and normal size 12.9 cm in length. There is no ascites. IMPRESSION: Heterogeneous echotexture of the liver. No gross mass. Electronically Signed by Steve Ponce MD 10/13/2018 10:58 A
== END ==
LOC: M RAD 08:27
PROVIDERS: ATTEND Internal Medicine Gastroenterology
DX: K74.60 Unspecified cirrhosis of liver (principal)

== ENCOUNTER → 2018-10-31 | Outpatient (CLI) | payer MEDICARE ==
[~2018-10-31] MED LIST changes: +GLIM2TAB; -GLIM2TAB4
[2018-10-31 16:29] LABS: BLOOD UREA NITROGEN 15 MG/DL (7-18); CREATININE FOR GFR 0.79 MG/DL (0.55-1.30); GLOMERULAR FILTRATION RATE > 60.0 (>39)
== END ==
LOC: M LAB 15:11
PROVIDERS: ATTEND Pain Medicine Interventional Pain Medicine
DX: M96.1 Postlaminectomy syndrome, not elsewhere classified (principal)

== ENCOUNTER → 2018-10-31 | Outpatient (CLI) | payer MEDICARE | LOC: M LAB 15:05 | PROVIDERS: ATTEND Internal Medicine Gastroenterology | DX: K74.60 Unspecified cirrhosis of liver (principal) ==

== ENCOUNTER → 2018-11-15 | Outpatient (CLI) | payer MEDICARE ==
[~2018-11-15] MED LIST changes: +PROHANCE 279.3MG/ML 15ML VIAL (A9576) As Ordered ONE; +PROHANCE 279.3MG/ML 5ML VIAL (A9576) As Ordered ONE
--- NOTE | 2018-11-15 16:18 | REP ---
MRI lumbar spine without and with IV contrast: History: Post laminectomy syndrome. Comparison CT study lumbar spine is from July 24, 2017. Technique: Sagittal and axial T1 and T2-weighted scans are acquired in the usual fashion with and without fat saturation. Sequences include spin echo, turbo spin-echo, and STIR imaging sequences. Gadolinium enhancement dose is 16 ml of intravenous ProHance. MRI findings: There is straightening of the normal lumbar lordosis. There is mild anterior wedging of the L4 vertebral body and partial collapse of the inferior endplate is seen at L3. These changes appear to be chronic. There is a Schmorl's node at the inferior endplate of L3. At the L3-4 disc space level, axial and sagittal images demonstrate a small to moderate left paracentral focal disc protrusion indenting the thecal sac. There is mild central canal stenosis at this level due to diffuse bulging of the remainder of the disc. There is a grade 1 degenerative 5 mm spondylolisthesis at L3-4 due to degenerative disc and osteoarthritic facet disease. Ligamentum flavum hypertrophy is present bilaterally at this level as well. There is bilateral neural foraminal narrowing at L3-4 due to disc bulging and facet hypertrophy. This is more prominent on the right. There is no evidence of pars defect. At L4-5, there is degenerative narrowing of the disc and mild diffuse bulging of its posterior margin is seen. No central canal stenosis is seen. No foraminal narrowing is seen. There is facet and ligamentum flavum hypertrophy. At L5-S1, there is degenerative disc narrowing. No disc protrusion is seen. Mild facet hypertrophy is present bilaterally. No foraminal or central canal stenosis is seen. At L2-3 there is mild diffuse disc bulging. No other finding. At L1-2, there is moderate disc bulging diffusely and centrally effacing the ventral margin of the thecal sac. No canal stenosis or foraminal stenosis is seen. Incidental note is made of a cyst along the anterior aspect of the right kidney incompletely included in the imaging field of view. Postcontrast images show some contrast enhancement along the Schmorl's node at the inferior endplate of L3. No other notable contrast enhancement is appreciated. In comparison with the CT study from July 24, 2017, the Schmorl's node at the inferior endplate of L3 is larger today. The compression deformity at L4 is unchanged. Impression: Degenerative spondylosis changes. There is a moderate sized focal disc protrusion to the left of midline at L3-4 and L3-4 central canal stenosis is seen with foraminal narrowing as above. There is a Schmorl's node at the inferior endplate of L3 which is larger than on recent CT study. Electronically Signed by Oh Angulo MD 11/15/2018 04:26 P
== END ==
LOC: M RAD 13:10
PROVIDERS: ATTEND Pain Medicine Interventional Pain Medicine
DX: M96.1 Postlaminectomy syndrome, not elsewhere classified (principal); M51.26 Other intervertebral disc displacement, lumbar region
CPT/HCPCS: 72158; A9576

== ENCOUNTER → 2018-12-28 | Outpatient (REF) | payer MEDICARE ==
[~2018-12-28] MED LIST changes: -GLIM2TAB; +GLIM2TAB2; -PROHANCE 279.3MG/ML 15ML VIAL (A9576) As Ordered ONE; -PROHANCE 279.3MG/ML 5ML VIAL (A9576) As Ordered ONE
[2018-12-28 17:43] LABS: APPEARANCE, URINE CLEAR (CLEAR); BACTERIA, URINE AUTO NEGATIVE (NEGATIVE); BILIRUBIN, URINE AUTO NEGATIVE (NEGATIVE); BLOOD, URINE BLOOD NEGATIVE (NEGATIVE); COLOR, URINE STRAW (YELLOW); GLUCOSE, URINE (UA) AUTO 3+ mg/dL (NEGATIVE); KETONE, URINE AUTO NEGATIVE (NEGATIVE); LEUKOCYTE ESTERASE, URINE AUTO NEGATIVE (NEGATIVE); MUCUS, URINE SMALL (NEGATIVE); NITRITE, URINE AUTO NEGATIVE (NEGATIVE); PROTEIN, URINE AUTO NEGATIVE (NEGATIVE); RBC, URINE AUTO 0 /HPF (0-3); SPECIFIC GRAVITY URINE AUTO 1.021 (1.002-1.035); SQUAMOUS EPITHELIAL CELL UR AU 0 /HPF (0-6); UROBILINOGEN, URINE AUTO 0.2 mg/dL (0.0-2.0); WBC, URINE AUTO 0 /HPF (0-3)
[2018-12-28 18:11] LABS: CREATININE, URINE 27.1 MG/DL; MALB URINE SIEMENS < 5.0 MG/L; MAU/CREAT RATIO 18.4 MCG/MG (0.0-30.0)
== END ==
LOC: M LAB REF 17:10
PROVIDERS: ATTEND Physician Assistant
DX: R30.0 Dysuria (principal); E11.65 Type 2 diabetes mellitus with hyperglycemia